=== PATIENT | male | born 1980 | race Caucasian/White ===

== ENCOUNTER 2024-07-06 08:46 | Emergency (ER) | payer OTHER, SELFPAY ==
[2024-07-06 08:50] VITALS: BP 144/99; PULSE 83; RESP 18; TEMP 36.2; O2SAT 98
[2024-07-06 09:01] VITALS: BP 137/94; PULSE 75; RESP 18; O2SAT 97
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
[2024-07-06] MEDS: KETOROLAC (*BKC) 60 MG/2 ML VIAL IM (09:26)
[2024-07-06] MEDS: TETANUS,DIPHTHERIA,AC PERTUSSIS ADULT (0.5 ML) BOOSTRIX IM (09:51)
--- OUTSIDE RECORDS SUMMARY | 2024-07-06 10:16 | XMS_ITS | Clinical Summary ---
Author Organization [facility] Address [facility] [address] [place] [address] Care Team Providers Care Manager Online Name Role Phone Deandre Estevez MD Primary Care Provider [phone] Allergies Active Allergy Reactions Criticality Noted Date Comments Clindamycin Hives 01/04/2019 Medications RAFA Santana, 4 MG tabletIndication s:URI (upper respiratory infection) Take 1 tablet (4 mg total) by mouth daily. 6 TABLETS ON DAY ONE, 5 TABLETS DAY TWO, 4 TABLETS DAY THREE, 3 TABLETS DAY FOUR, 2 TABLETS DAY FIVE, AND 1 TABLET DAY SIX 1 each 9 Active sertraline 50 MG tabletIndication s:Mild episode of recurrent major depressive disorder Take 1 tablet (50 mg total) by mouth daily. Patient must be seen for further refills. Virtual Visits now available 90 tablet 0 Active Active Problems Problem Noted Date Diagnosed Date Closed fracture of left wrist 04/12/2019 Overview (04/12/2019): Avulsion of the triquetrum Low vitamin D level 06/10/2017 Sleep apnea 06/10/2017 Allergic reaction 04/24/2017 Allergic rhinitis 04/24/2017 Anxiety disorder 10/08/2011 Resolved Problems Problem Noted Date Diagnosed Date Resolved Date Influenza 04/28/2016 01/04/2019 Chest pain 11/03/2011 01/04/2019 Family History Medical History Relation Comments Hypertension Father Diabetes Maternal Grandfather Heart Disease Maternal Grandfather Relation Status Comments Father Maternal Grandfather Social History Tobacco Use Types Packs/Day Years Used Date Smoking Tobacco: Never Smokeless Tobacco: Former Alcohol Use Standard Drinks/Week Comments No 0 (1 standard drink = 0.6 oz pur e alcohol) PHQ-2 Answer Date Recorded PHQ-2 Score 2 02/19/2019 Sex and Gender Information Value Date Recorded Sex Assigned at Not on file Legal Sex Male 7:17 PM CDT Gender Identity Not on file Sexual Orientation Not on file Last Filed Vital Signs Vital Sign Reading Time Taken Comments Blood Pressure 120/80 01/04/2019 8:55 AM CDT Pulse 58 01/04/2019 8:55 AM CDT Temperature 36.8 C (98.2 F) 04/23/2017 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 Respiratory Rate 12 01/04/2019 8:55 AM CDT Oxygen Saturation 98% 01/04/2019 8:55 AM CDT Inhaled Oxygen Concentration - - Weight 101.7 kg (224 lb 4.8 oz) 01/04/2019 8:55 AM CDT Height 180.3 cm (5' 11 ) 01/04/2019 8:55 AM CDT Body Mass Index 31.28 01/04/2019 8:55 AM CDT Plan of Treatment Health Maintenance Due Date Last Done Comments Colorectal Cancer Screening Colonoscopy (10 Years) 1978 Annual Physical 1981 Hepatitis C 1996 DTaP, Tdap and Td Vaccines ( 1 - Tdap) 1997 Hepatitis B Vaccines (1 of 3 - 19+ 3-dose series) 1997 COVID-19 Vaccine ( - 2023-2 5 season) 2023 PHQ-2 (Physician [place]) 03/15/2024 Meningococcal B Vaccine Aged Out No l onger eligible based on patient's age to complete this topic Meningococcal Vaccine Aged Out No shanta dimitrios eligible based on patient's age to complete this topic Pneumococcal Vaccine: Pediat rics (0 to 5 Years) and At-Risk Patients (6 to 49 Years) Aged Out No longer eligible b ased on patient's age to complete this topic RSV Immunizations Under 20 Months Aged Out No longer eligible based on patient's age to complete this topic [place] [address] [employer] Care Teams Manager Online Relationship Specialty Start Date End Date Deandre Estevez MD [address] [place] [address] PCP - General INTERNAL MEDICINE 04/23/17
--- OUTSIDE RECORDS SUMMARY | 2024-07-06 10:16 | XMS_ITS | Referral Summary ---
Author Organization [facility] Address [address] [place] [address] Care Team Providers Care Food Porter Name Role Phone Odell Abraham MD Primary Care Provider [phone] Odell Abraham MD Unavailable [phone] Allergies Active Allergy Reactions Criticality Noted Date Comments Clindamycin Hives Medium 01/04/2019 Guaifenesin Hives Medium 01/21/2015 Hives Theophylline-Guaifenesin Unknown 12/01/2019 Theophylline Hives Medium 01/21/2015 Hives Medications glucosamine HCl/chondroitin saravia (GLUCOSAMINE-CH ONDROITIN) 750-600 mg tablet,chewable Take by mouth daily Active traMADoL (ULTRAM) 50 mg tabletIndicatio ns:Strain of lumbar region, initial encounter Take 1 tablet (50 mg total) by mouth every 8 (eight) hours as needed for pain 30 tablet 0 Active Additional Information Patient not taking.Reported on 05/20/2021 sertraline (ZOLOFT) 50 mg tabletIndicatio ns:Generalized anxiety disorder Take 1 tablet (50 mg total) by mouth daily 90 tablet 3 2 Active methylPREDNISol one (MEDROL DOSEPACK) 4 mg DosepackIndicat ions:Acute non-recurrent maxillary sinusitis Take as directed on package. 21 tablet 2 Active Active Problems Problem Noted Date Diagnosed Date Closed fracture of left wrist 04/12/2019 Overview (05/20/2021): Avulsion of the triquetrum Left elbow pain 03/17/2019 Injury of left wrist 03/17/2019 Low vitamin D level 06/10/2017 Sleep apnea 06/10/2017 Allergic reaction 04/24/2017 Allergic rhinitis 04/24/2017 Anxiety disorder 10/08/2011 Immunizations Immunization Administration Dates Next Due Influenza, Unspecified 05/20/2021(Deferred: Saima ent Refused) Social History Tobacco Use Types Packs/Day Years Used Date Smoking Tobacco: Never Smokeless Tobacco: Current Chew AUDIT-C Answer Date Recorded Q1: How often do you have a drink containing alc ohol? Monthly or less 05/20/2021 Q2: How many drinks containi ng alcohol do you have on a typical day when you are drinking? 1 or 2 05/20/2021 Q3: How often do you have si x or more drinks on one occasion? 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 TEACHER Pulse 72 05/20/2021 4:35 PM PLANT PHYSIOLOGY TEACHER Temperature 36.5 C (97.7 F) 05/20/2021 4:35 PM PLANT PHYSIOLOGY TEACHER Respiratory Rate 18 05/20/2021 4:35 PM PLANT PHYSIOLOGY TEACHER Oxygen Saturation 97% 05/20/2021 4:35 PM 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
--- OUTSIDE RECORDS SUMMARY | 2024-07-06 10:16 | XMS_ITS | Data Portability ---
Author Organization [facility] Address [address] [facility] [address] Assessment No assessment recorded. Plan of Treatment Reminders Order Date Submit Date Provider Last Modified By Organization Details Last Modified Time Details Appointments None recorded . Lab lyme disease igg+igm, serum, reflex western blot 2023 024 [facility] Outpatient Lab, [address] [place] [address] [place], [address], 4 14:05:24 ehrlichi a sanna sis, igg+igm Ab, serum 2023 024 [facility] Outpatient Lab, [facility] [place], [address], 4 17:59:47 ambrocio ia ambrocio ii igg+igm Ab, serum 2023 024 [facility] Outpatient Lab, [facility] [place], [address], 4 16:20:46 lipid panel, serum 2023 024 [facility] Outpatient Lab, [facility], [address], 4 23:22:24 CBC w/ auto diff 2023 024 [facility] Outpatient Lab, [address] [place] [address] [place], [address], 4 16:05:59 CMP, serum or plasma 2023 024 [facility] Outpatient Lab, [address] [facility] [place], [address], 4 23:22:24 CRP, high sensitiv ity, serum or plasma [email or web address] [place] [address] Outpatient Lab, [address] [facility] [place] [place], [address], 4 09:52:14 PSA, serum or plasma 2023 024 [facility] Outpatient Lab, [address] [facility] [place], [address], 4 08:39:44 CMP, serum or plasma 2022 023 [facility], [address], [address], [place], [address], 3 10:25:15 CBC w/ auto diff 2022 023 [facility], [address] [facility] [address], [address], [place], [address], 3 08:23:54 PSA, total, serum or plasma 2022 023 [facility], [address] [facility] [address], [address], [place], [address], 3 08:23:55 lipid panel, serum 2022 023 [facility], [address] [facility] [address], [address], [place], [address], 3 08:23:[address] referral 2023 024 FLACO Martinez MD, [address], [place], [address], 4 09:33:[address] referral - Dr. Naylor Please call to schedule , thank you 2022 023 janis [facility], [address] [facility], [address], [place], [address], 4 11:00:34 Procedures None recorded . Surgeries None recorded . Imaging None recorded . Medication Orders Augmenti n 875 mg-125 mg tablet 2023 024 [facility], [address] [place] [address], [address], 4 15:59:07 Medrol (Anatoly) 4 mg tablets in a dose pack 2023 024 [facility], [address] [place] [address] [address], [address], 4 15:59:08 sertrali ne 50 mg tablet 2022 023 [facility], [address] [place] [address], [address], 4 16:24:16 Patient TargetsNo targets recorded. 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 Naylor Please call to schedule, thank you Referring Physician: [facility], Encounter Date: 08/17/2022 Administrative Office Clerk Referral for Chronic constipation Referring Physician: [facility], Encounter Date: 10/14/2023 Results Created Date Observation Date Name Description Value Unit Range Abnormal Flag Note LastModifiedBy Organization Detail LastModifiedTime 09/18/19 23 09/18/2022 LIPID PANEL cholesterol, total 214 mg/dL 100-19 9 above high normal Not Available [facility] ([facility]) [address] [place], [address], 09/18/2022 08:23:52 09/18/19 23 09/18/2022 LIPID PANEL triglyceride s 115 mg/dL 0-149 Not Available [facility] ([facility]) [address] [facility] [place], [address], 09/18/2022 08:23:52 09/18/19 23 09/18/2022 LIPID PANEL HDL cholesterol 62 mg/dL >39 Not Available [facility] ([facility]) [address] [facility] [place], [address], 09/18/2022 08:23:52 09/18/19 23 09/18/2022 LIPID PANEL VLDL cholesterol jenna 20 mg/dL 5-40 Not Available [facility] ([facility]) [address] [place], [address], 09/18/2022 08:23:52 09/18/19 23 09/18/2022 LIPID PANEL LDL chol calc ([facility]) 132 mg/dL 0-99 above high normal Not Available [facility] ([facility]) [address] [place], [address], 09/18/2022 08:23:52 09/18/19 23 09/18/2022 COMP. METAB OLIC PANEL (14) glucose 104 mg/dL 70-99 above high normal Not Available [facility] ([facility]) [address] [place], [address], 09/18/2022 08:23:52 09/18/19 23 09/18/2022 COMP. METAB OLIC PANEL (14) BUN 15 mg/dL 6-24 Not Available [facility] ([facility]) [address] [place], [address], 09/18/2022 08:23:52 09/18/19 23 09/18/2022 COMP. METAB OLIC PANEL (14) creatinine 0.97 mg/dL 0.76-1 .27 Not Available [facility] ([facility]) [address] [facility] [place], [address], 09/18/2022 08:23:52 09/18/19 23 09/18/2022 COMP. METAB OLIC PANEL (14) eGFR 99 mL/mi n/1.7 3 >59 Not Available [facility] ([facility]) [address] [facility], [place], [address], 09/18/2022 08:23:52 09/18/19 23 09/18/2022 COMP. METAB OLIC PANEL (14) BUN/creatini ne ratio 15 9-20 Not Available [facility] ([facility]) [address] [facility] [place], [address], 09/18/2022 08:23:52 09/18/19 23 09/18/2022 COMP. METAB OLIC PANEL (14) sodium 137 mmol/ L 134-14 4 Not Available [facility] ([facility]) [address] [facility] [place], [address], 09/18/2022 08:23:52 09/18/19 23 09/18/2022 COMP. METAB OLIC PANEL (14) potassium 4.9 mmol/ L 3.5-5. 2 Not Available [facility] ([email or web address]) [address] [facility] [place], [address], 09/18/2022 08:23:52 09/18/19 23 09/18/2022 COMP. METAB OLIC PANEL (14) chloride 101 mmol/ L 96-106 Not Available [facility] ([email or web address]) [address] [facility] [place], [address], 09/18/2022 08:23:52 09/18/19 23 09/18/2022 COMP. METAB OLIC PANEL (14) carbon dioxide, total 24 mmol/ L 20-29 Not Available [facility] ([email or web address]) [address] [facility] [place], [address], 09/18/2022 08:23:52 09/18/19 23 09/18/2022 COMP. METAB OLIC PANEL (14) calcium 9.7 mg/dL 8.7-10 .2 Not Available [facility] ([facility]) [address] [facility], [place], [address], 09/18/2022 08:23:52 09/18/1909/18/2022 COMP. METAB OLIC PANEL (14) protein, total 7.1 g/dL 6.0-8. 5 Not Available [facility] ([facility]) [address] [facility], [place], [address], 09/18/2022 08:23:52 09/18/1909/18/2022 COMP. METAB OLIC PANEL (14) albumin 4.6 g/dL 4.0-5. 0 Eff ectiv e September 21, 2022 Album in refer ence inter garrett will be thornton ing to: Age Male Femal e 0 - 7 days 3.6 - 4.9 3.6 - 4.9 8 - 30 days 3.5 - 4.6 3.5 - 4.6 1 - 6 month s 3.7 - 4.8 3.7 - 4.8 7 month s - 2 years 4.0 - 5.0 4.0 - 5.0 3 - 5 years 4.1 - 5.0 4.1 - 5.0 6 - 12 years 4.2 - 5.0 4.2 - 5.0 13 - 30 years 4.3 - 5.2 4.0 - 5.0 31 - 50 years 4.1 - 5.1 3.9 - 4.9 51 - 60 years 3.8 - 4.9 3.8 - 4.9 61 - 70 years 3.9 - 4.9 3.9 - 4.9 71 - 80 years 3.8 - 4.8 3.8 - 4.8 81 - 89 years 3.7 - 4.7 3.7 - 4.7 90 - 199 years 3.6 - 4.6 3.6 - 4.6 Not Available [facility] ([facility]) [address] [place], [address], 09/18/2022 08:23:52 09/18/19 23 09/18/2022 COMP. METAB OLIC PANEL (14) globulin, total 2.5 g/dL 1.5-4. 5 Not Available [facility] ([facility]) [address] [place], [address], 09/18/2022 08:23:52 09/18/19 23 09/18/2022 COMP. METAB OLIC PANEL (14) A/G ratio 1.8 1.2-2. 2 Not Available [facility] ([facility]) [address] [place], [address], 09/18/2022 08:23:52 09/18/19 23 09/18/2022 COMP. METAB OLIC PANEL (14) bilirubin, total 0.4 mg/dL 0.0-1. 2 Not Available [facility] ([facility]) [address] [place] [address], [place], [address], 09/18/2022 08:23:52 09/18/19 23 09/18/2022 COMP. METAB OLIC PANEL (14) alkaline phosphatase 101 IU/L 44-121 Not Available [facility] ([facility]) [address] [facility] [place], [address], 09/18/2022 08:23:52 09/18/19 23 09/18/2022 COMP. METAB OLIC PANEL (14) AST (SGOT) 38 IU/L 0-40 Not Available [facility] ([facility]) [address] [facility] [place], [address], 09/18/2022 08:23:52 09/18/19 23 09/18/2022 COMP. METAB OLIC PANEL (14) ALT (SGPT) 54 IU/L 0-44 above high normal Not Available [facility] ([facility]) [address] [facility] [place], [address], 09/18/2022 08:23:52 09/18/19 23 09/17/2022 AMBIG ABBRE V CMP14 DEFAU LT ambig abbrev CMP14 default Commen t A hand- writt en panel /prof ile was recei angle from your offic e. In accor dance with the [facility] Chica uous Test Code Polic y dated September 2002, we have compl eted your order by using the close st curre ntly or forme rly recog nized AMA panel . We have assjia alberts Compr ehens viridiana Metab olic Panel (14), Test Code #32[address]. If this is not the testi ng you wishe d to recei ve on this speci men, pleas e conta ct the [facility] Clien t Inqui ry/Te chnic al Servi garrick Depar tment to dov fy the test order . We appre ciate your busin ess. Not Available [facility] ([facility]) [address] [place], [address], 09/18/2022 08:23:53 09/18/19 23 09/17/2022 AMBIG ABBRE V LP DEFAU LT ambig abbrev LP default Commen t A hand- writt en panel /prof ile was recei angle from your offic e. In accor dance with the [facility] Chica uous Test Code Polic y dated September 2002, we have compl eted your order by using the close st curre ntly or forme rly recog nized AMA panel . We have maulik alberts Lipid Panel , Test Code #[address]. If this is not the testi ng you wishe d to recei ve on this speci men, pleas e conta ct the [facility] Clien t Inqui ry/Te chnic al Servi garrick Depar tment to dov fy the test order . We appre ciate your busin ess. Not Available [facility] ([facility]) [address] [place], [address], 09/18/2022 08:23:54 09/18/19 23 09/18/2022 CBC WITH DIFFE RENTI AL/PL ATELE T WBC 5.1 x10e3 /uL 3.4-10 .8 Not Available [facility] ([facility]) [address] [facility], [place], [address], 09/18/2022 08:23:54 09/18/19 23 09/18/2022 CBC WITH DIFFE RENTI AL/PL ATELE T RBC 4.76 x10e6 /uL 4.14-5 .80 Not Available [facility] ([facility]) [address] [facility], [place], [address], 09/18/2022 08:23:54 09/18/19 23 09/18/2022 CBC WITH DIFFE RENTI AL/PL ATELE T hemoglobin 14.0 g/dL 13.0-1 7.7 Not Available [facility] ([facility]) [address] [facility], [place], [address], 09/18/2022 08:23:54 09/18/19 23 09/18/2022 CBC WITH DIFFE RENTI AL/PL ATELE T hematocrit 42.4 % 37.5-5 1.0 Not Available [facility] ([facility]) [address] [place], [address], 09/18/2022 08:23:54 09/18/1909/18/2022 CBC WITH DIFFE RENTI AL/PL ATELE T MCV 89 fL 79-97 Not Available [facility] ([facility]) [address] [place], [address], 09/18/2022 08:23:54 09/18/1909/18/2022 CBC WITH DIFFE RENTI AL/PL ATELE T MCH 29.4 pg 26.6-3 3.0 Not Available [facility] ([facility]) [address] [place], [address], 09/18/2022 08:23:54 09/18/19 23 09/18/2022 CBC WITH DIFFE RENTI AL/PL ATELE T MCHC 33.0 g/dL 31.5-3 5.7 Not Available [facility] ([facility]) [address] [facility], [place], [address], 09/18/2022 08:23:54 09/18/19 23 09/18/2022 CBC WITH DIFFE RENTI AL/PL ATELE T RDW 12.4 % 11.6-1 5.4 Not Available [facility] ([facility]) [address] [facility], [place], [address], 09/18/2022 08:23:54 09/18/19 23 09/18/2022 CBC WITH DIFFE RENTI AL/PL ATELE T platelets 197 x10e3 /uL 150-45 0 Not Available [facility] ([facility]) [address] [facility], [place], [address], 09/18/2022 08:23:54 09/18/19 23 09/18/2022 CBC WITH DIFFE RENTI AL/PL ATELE T neutrophils 53 % notest ab. Not Available [facility] ([facility]) [address] [facility], [place], [address], 09/18/2022 08:23:54 09/18/19 23 09/18/2022 CBC WITH DIFFE RENTI AL/PL ATELE T lymphs 31 % notest ab. Not Available [facility] ([facility]) [address] [facility], [place], [address], 09/18/2022 08:23:54 09/18/19 23 09/18/2022 CBC WITH DIFFE RENTI AL/PL ATELE T monocytes 8 % notest ab. Not Available [facility] ([facility]) [address] [facility], [place], [address], 09/18/2022 08:23:54 09/18/19 23 09/18/2022 CBC WITH DIFFE RENTI AL/PL ATELE T eos 6 % notest ab. Not Available [facility] ([facility]) [address] [facility], [place], [address], 09/18/2022 08:23:54 09/18/19 23 09/18/2022 CBC WITH DIFFE RENTI AL/PL ATELE T basos 1 % notest ab. Not Available [facility] ([facility]) [address] [facility], [place], [address], 09/18/2022 08:23:54 09/18/19 23 09/18/2022 CBC WITH DIFFE RENTI AL/PL ATELE T neutrophils (absolute) 2.7 x10e3 /uL 1.4-7. 0 Not Available [facility] ([facility]) [address] [facility], [place], [address], 09/18/2022 08:23:54 09/18/19 23 09/18/2022 CBC WITH DIFFE RENTI AL/PL ATELE T lymphs (absolute) 1.6 x10e3 /uL 0.7-3. 1 Not Available [facility] ([facility]) [address] [place], [address], 09/18/2022 08:23:54 09/18/19 23 09/18/2022 CBC WITH DIFFE RENTI AL/PL ATELE T monocytes(ab solute) 0.4 x10e3 /uL 0.1-0. 9 Not Available [facility] ([facility]) [address] [place], [address], 09/18/2022 08:23:54 09/18/19 23 09/18/2022 CBC WITH DIFFE RENTI AL/PL ATELE T eos (absolute) 0.3 x10e3 /uL 0.0-0. 4 Not Available [facility] ([facility]) [address] [place], [address], 09/18/2022 08:23:54 09/18/19 23 09/18/2022 CBC WITH DIFFE RENTI AL/PL ATELE T baso (absolute) 0.1 x10e3 /uL 0.0-0. 2 Not Available [facility] ([facility]) [address] [facility], [place], [address], 09/18/2022 08:23:54 09/18/19 23 09/18/2022 CBC WITH DIFFE RENTI AL/PL ATELE T immature granulocytes 1 % notest ab. Not Available [facility] ([facility]) [address] [facility], [place], [address], 09/18/2022 08:23:54 09/18/19 23 09/18/2022 CBC WITH DIFFE RENTI AL/PL ATELE T immature grans (abs) 0.0 x10e3 /uL 0.0-0. 1 Not Available [facility] ([facility]) [address] [facility], [place], [address], 09/18/2022 08:23:54 09/18/19 23 09/18/2022 PROST ATE-S PECIF IC AG prostate specific Ag 0.8 NG/mL 0.0-4. 0 Des ECLIA metho dolog y. Accor ding to the Ameri can Urolo gical Assoc iatio n, Serum PSA shoul d decre ase and remai n at undet ectab le level s after radic al prost atect nicol. The AUA defin es bioch emica l recur rence as an initi al PSA value 0.2 ng/mL or great er follo wed by a subse quent confi rmato ry PSA value 0.2 ng/mL or great er. Value s obtai aristeo with diffe rent assay metho ds or kits canno t be used inter thornton eably . Resul ts canno t be inter prete d as absol lasha evide nce of the prese nce or absen ce of [facility] robert disea se. Not Available [facility] ([facility]) [address] [facility], [place], [address], 09/18/2022 08:23:55 03/19/19 25 03/16/2024 XR, chest , 2 view No observ ation record ed. [place] [address] [place], [address], 03/21/2024 09:01:27 Result Notes None recorded. Problems Name Problem SNOMED Code Status Onset Date Resolution Date Notes Provider Name and Address Organization Details Recorded Time Chronic constipation 411501295 Active 2022 Odell Abraham MD Attn: Gris tapia,[address] [facility], [place], [address], [place] [facility] 3 09:18:20 Obesity 986072564 Active 2022 Odell Abraham MD Attn: Gris tapia,[address] [facility], [place], [address], [place] [facility] 3 09:18:21 Depressive disorder 70519177 Active 2022 Odell Abraham MD Attn: Gris tapia,[address] [facility], [place], [address], [place] [facility] 3 09:18:22 Bite of spider Active 2023 Odell Abraham MD Attn: Gris tapia,[address] [facility], [place], [address], [place] [facility] 4 13:38:47 Viral upper respiratory tract infection 956056480 Active 2023 Odell Abraham MD Attn: Gris tapia,[address] [facility], [place], [address], [place] [facility] 4 13:38:48 Problem Notes None recorded. Procedures Surgical History Date Name Laterality Status Provider Name and Address Organization Details Recorded Time procedure on hand completed Renata Amezcua [place] [facility] [place] 08/17/2022 10:08:53 Imaging Results Imaging Date Name Status LastModified by Organiz ation Details LastModified Time 03/16/2024 XR, chest, 2 view completed [place] [address] [place], [address], 03/21/2024 09:01:27 Procedure Notes None recorded. Medical Equipment None Reported. Allergies Allergen ID Allergen Name Allergen Category Reaction Reaction Severity Criticality Documentation Date Start Date Code Code System Note Provider Name and Address Organization Details Recorded Time 951343 guarlenefenjericho in / theophyll ine medicatio n Not available Not available Not available 08/17/2022 52976 0 RxNorm Not Available Not Available Not Available 978197 clindamyc in Not available Not available Not available Not available 10/14/2023 2582 RxNorm Not Available Not Available Not Available Medications Name Sig Start Date Stop Date Status Note LastModified by Organization Details LastModified Time benzonatate 200 mg capsule TAKE ONE CAPSULE BY MOUTH THREE TIMES DAILY NEEDED FOR cough UP TO 10 DAYS 08/17 completed Not Available Not Available Not Available methylpredn isolone 4 mg tablets in a dose pack take by mouth as directed on package active Not Available Not Available No t Available sertraline 50 mg tablet TAKE ONE TABLET BY MOUTH DAILY 2023 active Not Available Not Available Not Avai lable amoxicillin 875 mg-potassiu m clavulanate 125 mg tablet TAKE ONE TABLET BY MOUTH EVERY TWELVE HOURS FOR 10 DAYS active Not Available Not Available No t Available Vitals Date Recorded Body weight Body mass index (BMI) Body height Oxygen saturation Oxygen saturation in Arterial blood by Pulse oximetry Heart rate Respiratory rate Systolic blood pressure Diastolic blood pressure Provider Name and Address Organization Details Last Updated DateTime 3 858671. 14 g 33.1 kg/m2 180.34 cm 95 % 95 % 80 /min 18 /min 120 mm[Hg] 80 mm[Hg] Renata Amezcua MA CT - [facility] 3 09:07:35 Date Recorded Body height Body mass index (BMI) Body weight Oxygen saturation Oxygen saturation in Arterial blood by Pulse oximetry Heart rate Body temperature Systolic blood pressure Diastolic blood pressure Provider Name and Address Organization Details Last Updated DateTime 4 180.34 cm 32.6 kg/m2 270276. 17 g 97 % 97 % 66 /min 97.3 [degF] 122 mm[Hg] 70 mm[Hg] Kiki Marin MA [facility] S[facility] 4 12:43:47 Social History Question Answer Notes LastModified by Organizat ion Details LastModified Time Tobacco Smoking Status Never Smoker Renata Amezcua MA [facility], [place] 08/17/2022 09:08:25 What Is Your Level Of Alcohol Consumption? Occasional Information not available 08/17/2022 Do You Or Have You Ever Used E-cigarettes Or Vape? Never Used Electronic Cigarettes Information not available 08/17/2022 What Was The Date Of Your Most Recent Tobacco Screening? 08/17/2022 Information not available 08/17/2022 Do You Or Have You Ever Used Smokeless Tobacco? Current Snuff User Information not available 08/17/2022 Do You Use Any Illicit Or Recreational Drugs? No Information not available 08/17/2022 Has Tobacco Cessation Counseling Been Provided? Yes Information not available 08/17/2022 On What Date Was Tobacco Cessation Counseling Provided? 10/14/2023 [email or web address] Information not available 10/14/2023 Do You Or Have You Ever Used Any Other Forms Of Tobacco Or Nicotine? Yes Information not available 08/17/2022 Sex: Unknown Functional Status None recorded. Mental Status None recorded. Family History Relationship Description Onset Age of this Age Resolved Age Notes LastModified by Organization Details LastModified Time Father Hypertensive disorder [email or web address] Not available 2022 10:10:49 Father Alcohol abuse [email or web address] Not available 2023 12:37:42 Medical History Condition Response Coronary Artery Disease N Other N Atrial Fibrillation N High Blood Pressure N Depression N COPD N Blood Clots N Anxiety Disorder Y Muscle, Joint, or Bone Problems N Acid Reflux (GERD) N Cancer N Stroke N ADHD N High Cholesterol N Liver Disease N Schizophrenia N Headaches N Thyroid Problems N Kidney or Bladder Problems N GI Problems N Eating Disorder N Skin Problems N Anemia N Heart Attack ([place]) N Diabetes N Seizures/Epilepsy N Asthma N Allergies N Substance Abuse N Hepatitis N Heart Failure N Osteoporosis N Past Encounters Encounter ID Performer Location Encounter Start Date Encounter Closed Date Diagnosis/Indication Diagnosis SNOMED-CT Code Diagnosis ICD10 Code Diagnosis Note [id number] Odell Abraham MD [facility] [address] [address] 08/17/2022 08:55:56 08/18/2022 14:56:15 Chronic constipation 995669736 K59.09 condition chroinc and not at goal refer to dr rogers Obesity 221117807 E66.9 condition chronic and not at goal continue low fat diet. order cbc, cmp Depressive disorder 3548 9007 F32.A conditon chroinc and at goal refill the sertraline for 90 days and 3 refills. Cholesterol screening 27 4062592 Z13.220 order lipid panel Screening for malignant neoplasm of prostate 695020587 Z12.5 order psa [id number] [facility] [address] [place] [address] 10/14/2023 12:14:07 10/18/2023 11:00:51 Viral upper respiratory tract infection 218881058 J06.9 conditon acute order medrol dose pack order cbc, cmp, crp Bite of spider 744805867 W57.XXXA condition acute. order augmentin for 10 days. Fever 636038998 R50.9 condition acute order lyme titer, erlichiosi s, dorian mountain spotted fever. Chronic constipation 236 735306 K59.09 condition chroinc and not at goal refer to dr martinez Depressive disorder [id number] F32.A conditon chroinc and at goal refill the sertraline for 90 days and 3 refills. Obesity [id number] E66.9 condition chronic and not at goal start low fat diet. Cholesterol screening [id number] Z13.220 order lipid panel Screening for malignant neoplasm of prostate [id number] Z12.5 order psa Health Concerns Section Related Observation LastModified by Organization Detai ls LastModified Time None Recorded Concern Status LastModified by Organization Details LastModified Time None Recorded Advance Directives Directive None Recorded Payers Encounter Date Sequence Insurance Name Policy Number Policy Floyd Covered Member ID Floyd Member ID Guarantor Name 08/17/2022 1 [facility] [employer] Horacio Trent [id number] Horacio Trent 10/14/2023 1 [facility] [employer] Horacio Trent [id number] Horacio Trent Notes Date Note Type Note Provider Name and Address Organization Details Recorded Time 08/17/2022 text/html returns to the office for repeat evlaution states that the sertraline is working. the constipation is getting worse. states he is watching his diet. Odell Abraham MD Attn: Accounting[address] [facility], [place], [address], [facility] 08/17/2022 09:45:02 10/14/2023 text/html staets that he h as been having body aches and fever since wednesday. has a spider bite to the right ankle the constipatoin adn the depression is under control and is watching his diet. strep, covid, rsv, inf neg. has joint pain Odell Abraham MD Attn: Accounting[address] , [place], [address], [facility] 10/14/2023 16:22:00
--- OUTSIDE RECORDS SUMMARY | 2024-07-06 10:16 | XMS_ITS | Clinical Summary ---
Author Organization [facility] Address [address] [place] [address] Care Team Providers Care Wine Specialist Name Role Phone Odell Abraham MD Primary Care Provider [phone] Odell Abraham MD Unavailable [phone] Allergies Active Allergy Reactions Criticality Noted [...] Due Influenza, Unspecified 05/20/2021(Deferred: Saima ent Refused) Surgical History Surgery Date Site/Laterality Comments FINGER SURGERY left index Family History Medical History Relation Name Comments No Known Problems Brother No Known Problems Father No Known Problems Maternal Grandfather No Known Problems Maternal Grandmother No Known Problems Mother No Known Problems Paternal Grandfather No Known Problems Paternal Grandmother No Known Problems Sister Relation Name Status Comments Brother Alive Father Alive Maternal Grandfather Maternal Grandmother Mother Alive Paternal Grandfather Paternal Grandmother Sister Alive Son Alive Social History Tobacco Use Types Packs/Day Years [...] on file Legal Sex Male 10:16 PM [employer] Gender Identity Not on file Sexual Orientation Not on file Obstetrics History Last Filed Vital Signs Vital Sign Reading Time Taken Comments Blood Pressure 120/84 05/20/2021 4:35 PM [employer] Pulse 72 05/20/2021 4:35 PM [employer] Temperature 36.5 C (97.7 F) 05/20/2021 4:35 PM [employer] Respiratory Rate 18 05/20/2021 4:35 PM [employer] Oxygen Saturation 97% 05/20/2021 4:35 PM [employer] Inhaled Oxygen Concentration - - Weight 107.5 kg (237 lb) 05/20/2021 4:35 PM [employer] Height 180.3 cm (5' 11 ) 05/20/2021 4:35 PM [employer] Body Mass Index 33.05 05/20/2021 4:35 PM [employer] Plan of Treatment Health Maintenance Due Date Last Done Comments Colon Cancer Screening-Colonoscopy 1978 Hepatitis C Screening 1978 DTaP/Tdap/Td Vaccine (1 - Tdap) 1989 Hepatitis B Screening 1996 Regular Well Visit/Exam 18-64 1996 Depression Screening 05/20/2022 05/20/2021, 12/01/2019 Influenza Vaccine (Season Ended) 2024 HPV Vaccines Aged Out No longer eligi ble based on patient's age to complete this topic Pneumococcal vaccine <65 Aged Out No longer eligible based on patient's age to complete this topic Insurance [employer] SIG [id number] [employer] [id number] [place] [address] Care Teams Wine Specialist Relationship Specialty Start Date End Date Odell Abraham MD PCP - General Family Medicine 05/21/21 Odell Abraham MD Family Medicine 05/21/21
[2024-07-06 11:00] VITALS: BP 124/88; PULSE 60; RESP 18; O2SAT 98
--- NOTE | 2024-07-06 11:09 | PC.NURSE ---
report given to NOAH Loredo
--- NOTE | 2024-07-06 11:18 | ECG_ITS ---
Test Date: 2024-07-06 11:18:18 Measurements Intervals Mineral Rate: 50 P: 25 FL: 153 QRS: -6 QRSD: 114 T: 9 QT: 404 QTc: 371 Interpretive Statements SINUS BRADYCARDIA WITH SINUS ARRHYTHMIA INCOMPLETE RIGHT BUNDLE BRANCH BLOCK VOLTAGE CRITERIA FOR LVH BASELINE ARTIFACT- I, II, III, AVR, AVL, AVF, V1-V6 BORDERLINE ECG No previous ECG available for comparison Electronically Signed On 07-06-2024 15:33:08 CDT by Sterling Mendez D.O.
[2024-07-06 11:30] VITALS: BP 127/92; PULSE 55; RESP 17; O2SAT 100
[2024-07-06] MEDS: HYDROcodone/acetaminophen (*CRX) 5-325 MG TABLET 1 TAB PO (11:30)
[2024-07-06] MEDS: BACITRACIN OINTMENT 15 GM TUBE 1 APPLIC TOPICAL (11:30)
== END 2024-07-06 11:55 | disposition home or self-care (01) ==
PROVIDERS: Emergency Provider Registered Nurse; PCP Family Medicine
DX: T23.252A Burn of second degree of left palm, initial encounter (principal); T23.272A Burn of second degree of left wrist, initial encounter; T31.0 Burns involving less than 10% of body surface; R00.1 Bradycardia, unspecified; Z23 Encounter for immunization; X08.8XXA Exposure to other specified smoke, fire and flames, initial encounter
CPT/HCPCS: 16020; 90471; 90715; 93005; 96372; 99283; A9270; J1885